=== PATIENT | male | born 1960 | race Caucasian/White ===

== ENCOUNTER 2017-12-20 13:14 | Emergency (ER) | payer SELFPAY ==
[~2017-12-20] VITALS: Ht 167.6 cm; Wt 79.7 kg
[~2017-12-20 13:14] MED LIST: CLEO300C2 PO; LORTA5 PO
[2017-12-20 13:17] VITALS: BP 138/85; PULSE 63; RESP 16; TEMP 97.5; O2SAT 98
[2017-12-20] MEDS ORDERED: ATEN1TAB73 PO (13:26)
[2017-12-20] MEDS ORDERED: METO25TA3 PO (13:26)
[2017-12-20] MEDS ORDERED: ZANT150T2 PO (13:26)
[2017-12-20] MEDS ORDERED: SODIUM CHLOR 0.9% 1000 ML INJ 1,000 ML IV SCH (13:34)
[2017-12-20 13:45] LABS: AUTOMATED NEUTROPHIL # 9.1 TH/MM3 (1.8-7.7); BASOPHIL % 0.2 % (0.0-2.0); EOSINOPHIL # 0.2 TH/MM3 (0-0.4); EOSINOPHIL % 1.7 % (0.0-4.0); HEMATOCRIT 36.8 % (39.0-51.0); LYMPH % 12.2 % (9.0-44.0); LYMPHOCYTE # 1.5 TH/MM3 (1.0-4.8); MEAN CELL VOLUME 76.3 FL (80.0-100.0); MEAN CORPUSCULAR HEMOGLOBIN 24.9 PG (27.0-34.0); MEAN CORPUSCULAR HGB CONC 32.6 % (32.0-36.0); MEAN PLATELET VOLUME 6.5 FL (7.0-11.0); MONO % 9.6 % (0.0-8.0); MONOCYTE # 1.2 TH/MM3 (0-0.9); NEUT % 76.3 % (16.0-70.0); PLATELET COUNT 289 TH/MM3 (150-450); RED BLOOD COUNT 4.83 MIL/MM3 (4.50-5.90); RED CELL DISTRIBUTION WIDTH 20.9 % (11.6-17.2)
[2017-12-20] MEDS ORDERED: MORPHINE SULFATE 4 MG/ML INJ IV PUSH ONE (13:45)
[2017-12-20] MEDS ORDERED: ONDANSETRON HCL 4 MG/2 ML VIAL IVP ONE (13:45)
[2017-12-20] MEDS ORDERED: LORazepam 2 MG/ML VIAL IV PUSH ONE (13:45)
[2017-12-20] MEDS ORDERED: FAMOTIDINE 20 MG/2 ML VIAL IV PUSH ONE (13:45)
[2017-12-20] MEDS ORDERED: SODIUM CHLORIDE 0.9% FLUSH 10 ML FLUSH IV FLUSH PRN (13:45)
--- NOTE | 2017-12-20 13:49 | PD ---
HPI Chief Complaint: GI Complaint Time Seen by Provider: 13:20 Travel History International Travel<30 days: No Contact w/Intl Traveler<30days: No Traveled to known affect area: No History of Present Illness HPI The patient is a 57-year-old male who presents to the emergency department for nausea and vomiting of one weeks duration. The patient states approximately a week ago he became nauseated, has vomiting approximately every hour. He denies any diarrhea, does complain of epigastric discomfort with vomiting that is relieved between episodes of vomiting. He does have a history of peptic ulcer disease with previous GI bleed causing anemia, however, denies previous blood transfusions. He does drink alcohol on a daily basis, approximately 10-12 beers per day, denies any history of pancreatitis. He does note a history of anxiety, thinks his anxiety is worsening his symptoms. He denies any fever, chills, or sweats. Symptoms are moderate. The patient's only previous abdominal surgery was for left inguinal hernia repair. He denies any known history of gallstones or biliary colic. He does not follow with a primary physician. PFSH Past Medical History Hx Anticoagulant Therapy: No Cardiovascular Problems: Yes (HTN) Diabetes: No Diminished Hearing: No GERD: Yes Hypertension: Yes Influenza Vaccination: No ?: Not Past Surgical History Abdominal Surgery: Yes (hernia repair) Social History Alcohol Use: Yes (2-3 beers every other day) Tobacco Use: No Substance Use: No Allergies-Medications (Allergen,Severity, Reaction): Coded Allergies: penicillin G (Unverified Allergy, Intermediate, Hives, 12/20/17) Reported Meds & Prescriptions Reported Meds & Active Scripts Active Reported Zantac (Ranitidine HCl) 150 Mg Tab 150 Mg PO DAILY Tenormin (Atenolol) 25 Mg Tab 25 Mg PO DAILY Metoprolol Tartrate 25 Mg Tab 25 Mg PO BID Review of Systems Except as stated in HPI: all other systems reviewed are Neg General / Constitutional: No: Fever Cardiovascular: No: Chest Pain or Discomfort Respiratory: No: Shortness of Breath Gastrointestinal: Positive: Nausea, Vomiting, Abdominal Pain (Epigastric pain with vomiting), No: Diarrhea Psychiatric: Positive: Anxiety, Substance Abuse (Alcohol abuse with 10-12 beers per day) Physical Exam Narrative GENERAL: Awake, alert, pleasant 57-year-old male appears his stated age and does appear slightly anxious. SKIN: Slightly diaphoretic across the forehead. HEAD: Atraumatic. Normocephalic. EYES: Pupils equal and round. No scleral icterus. No injection or drainage. ENT: No nasal bleeding or discharge. Mucous membranes pink and moist. NECK: Trachea midline. No JVD. CARDIOVASCULAR: Regular rate and rhythm. No murmur appreciated. RESPIRATORY: No accessory muscle use. Clear to auscultation. Breath sounds equal bilaterally. GASTROINTESTINAL: Abdomen soft, no epigastric tenderness, guarding, or rigidity. Rectal: No gross blood. Guaiac negative. MUSCULOSKELETAL: No obvious deformities. No clubbing. No cyanosis. No edema. NEUROLOGICAL: Awake and alert. No obvious cranial nerve deficits. Motor grossly within normal limits. Normal speech. PSYCHIATRIC: Slightly anxious. Insight and judgment appear normal. Data Data Last Documented VS Vital Signs Date Time Temp Pulse Resp B/P (MAP) Pulse Ox O2 Delivery O2 Flow Rate FiO2 12/20/17 14:09 18 12/20/17 13:53 62 128/81 (97) 100 Room Air 12/20/17 13:17 97.5 Orders Orders Complete Blood Count With Diff (12/20/17 13:34) Comprehensive Metabolic Panel (12/20/17 13:34) Lipase (12/20/17 13:34) Lactic Acid (12/20/17 13:34) Iv Access Insert/Monitor (12/20/17 13:34) Ecg Monitoring (12/20/17 13:34) Oximetry (12/20/17 13:34) Morphine Inj (Morphine Inj) (12/20/17 13:45) Ondansetron Inj (Zofran Inj) (12/20/17 13:45) Sodium Chlor 0.9% 1000 Ml Inj (Ns 1000 M (12/20/17 13:34) Sodium Chloride 0.9% Flush (Ns Flush) (12/20/17 13:45) Famotidine Inj (Pepcid Inj) (12/20/17 13:45) Lorazepam Inj (Ativan Inj) (12/20/17 13:45) Labs Laboratory Tests Test 12/20/17 13:35 12/20/17 13:45 White Blood Count 12.0 TH/MM3 Red Blood Count 4.83 MIL/MM3 Hemoglobin 12.0 GM/DL Hematocrit 36.8 % Mean Corpuscular Volume 76.3 FL Mean Corpuscular Hemoglobin 24.9 PG Mean Corpuscular Hemoglobin Concent 32.6 % Red Cell Distribution Width 20.9 % Platelet Count 289 TH/MM3 Mean Platelet Volume 6.5 FL Neutrophils (%) (Auto) 76.3 % Lymphocytes (%) (Auto) 12.2 % Monocytes (%) (Auto) 9.6 % Eosinophils (%) (Auto) 1.7 % Basophils (%) (Auto) 0.2 % Neutrophils # (Auto) 9.1 TH/MM3 Lymphocytes # (Auto) 1.5 TH/MM3 Monocytes # (Auto) 1.2 TH/MM3 Eosinophils # (Auto) 0.2 TH/MM3 Basophils # (Auto) 0.0 TH/MM3 CBC Comment AUTO DIFF Differential Comment AUTO DIFF CONFIRMED Blood Urea Nitrogen 10 MG/DL Creatinine 0.99 MG/DL Random Glucose 116 MG/DL Total Protein 8.6 GM/DL Albumin 3.6 GM/DL Calcium Level 8.6 MG/DL Alkaline Phosphatase 85 U/L Aspartate Amino Transf (AST/SGOT) 84 U/L Alanine Aminotransferase (ALT/SGPT) 103 U/L Total Bilirubin 0.4 MG/DL Sodium Level 132 MEQ/L Potassium Level 3.3 MEQ/L Chloride Level 94 MEQ/L Carbon Dioxide Level 23.2 MEQ/L Anion Gap 15 MEQ/L Estimat Glomerular Filtration Rate 78 ML/MIN Lipase 107 U/L Lactic Acid Level 2.1 mmol/L MDM Medical Decision Making Medical Screen Exam Complete: Yes Emergency Medical Condition: Yes Medical Record Reviewed: Yes Interpretation(s) Laboratory Tests Test 12/20/17 13:35 12/20/17 13:45 White Blood Count 12.0 TH/MM3 Red Blood Count 4.83 MIL/MM3 Hemoglobin 12.0 GM/DL Hematocrit 36.8 % Mean Corpuscular Volume 76.3 FL Mean Corpuscular Hemoglobin 24.9 PG Mean Corpuscular Hemoglobin Concent 32.6 % Red Cell Distribution Width 20.9 % Platelet Count 289 TH/MM3 Mean Platelet Volume 6.5 FL Neutrophils (%) (Auto) 76.3 % Lymphocytes (%) (Auto) 12.2 % Monocytes (%) (Auto) 9.6 % Eosinophils (%) (Auto) 1.7 % Basophils (%) (Auto) 0.2 % Neutrophils # (Auto) 9.1 TH/MM3 Lymphocytes # (Auto) 1.5 TH/MM3 Monocytes # (Auto) 1.2 TH/MM3 Eosinophils # (Auto) 0.2 TH/MM3 Basophils # (Auto) 0.0 TH/MM3 CBC Comment AUTO DIFF Differential Comment AUTO DIFF CONFIRMED Blood Urea Nitrogen 10 MG/DL Creatinine 0.99 MG/DL Random Glucose 116 MG/DL Total Protein 8.6 GM/DL Albumin 3.6 GM/DL Calcium Level 8.6 MG/DL Alkaline Phosphatase 85 U/L Aspartate Amino Transf (AST/SGOT) 84 U/L Alanine Aminotransferase (ALT/SGPT) 103 U/L Total Bilirubin 0.4 MG/DL Sodium Level 132 MEQ/L Potassium Level 3.3 MEQ/L Chloride Level 94 MEQ/L Carbon Dioxide Level 23.2 MEQ/L Anion Gap 15 MEQ/L Estimat Glomerular Filtration Rate 78 ML/MIN Lipase 107 U/L Lactic Acid Level 2.1 mmol/L Differential Diagnosis Differential diagnosis includes anxiety, somatization, gastritis, alcoholic gastritis, peptic ulcer disease, pancreatitis, biliary colic, cholecystitis, choledocholithiasis, GERD, electrolyte abnormality, dehydration. Narrative Course IV was established, labs were drawn and sent, and the patient was placed on cardiac telemetry monitoring and continuous pulse oximetry monitoring. The patient was administered Pepcid, morphine, Zofran, Ativan, and IV fluids. Lipase level was sent to lab. Lipase is unremarkable. Sodium level is normal. Potassium is minimally low at 3.3. Hemoglobin is greater than 12. The patient was reevaluated at 2:40 PM, symptoms have improved. The patient thinks that his recent change in work and anxiety is contributing to his symptoms. He is advised to decrease his alcohol intake, take Zantac twice a day, Zofran as needed for nausea and vomiting. HemaPrompt Point of Care Internal Pos. & Neg. Controls: Passed Fecal Specimen Occult Blood: Negative Diagnosis Primary Impression: Gastritis Qualified Codes: K29.20 - Alcoholic gastritis without bleeding Additional Impression: Anxiety Patient Instructions: General Instructions Additional Instructions: Medications as directed. Follow-up with your primary physician and/or gastroenterology. Decrease alcohol intake. Follow-up with your doctor in regards to your anxiety. Med/Other Pt SpecificInfo: Prescription(s) given Scripts Clonazepam (Klonopin) 1 Mg Tab 1 MG PO BID for 7 Days, #14 TAB 0 Refills Prov: Gabriel Dorman MD 12/20/17 Ranitidine (Zantac 150 Maximum Strength) 150 Mg Tab 150 MG PO BID for 30 Days, #60 TAB Prov: Gabriel Dorman MD 12/20/17 Disposition: 01 DISCHARGE HOME Condition: Stable Gabriel Dorman MD Dec 20, 2017 13:49
[2017-12-20 13:53] VITALS: BP 128/81; PULSE 62; RESP 18; O2SAT 100
[2017-12-20 13:57] LABS: CHLORIDE 94 MEQ/L (98-107); SODIUM (NA) 132 MEQ/L (136-145)
[2017-12-20 14:00] LABS: CALCIUM 8.6 MG/DL (8.5-10.1)
[2017-12-20 14:01] LABS: ALBUMIN 3.6 GM/DL (3.4-5.0); BICARBONATE 23.2 MEQ/L (21.0-32.0); BLOOD UREA NITROGEN 10 MG/DL (7-18); GLUCOSE,RANDOM 116 MG/DL (74-106)
[2017-12-20 14:04] LABS: ALT (GPT) 103 U/L (12-78); AST (GOT) 84 U/L (15-37); CREATININE 0.99 MG/DL (0.60-1.30); GLOMERULAR FILTRATION RATE 78 ML/MIN (>89)
[2017-12-20 14:06] LABS: TOTAL BILIRUBIN ADULT 0.4 MG/DL (0.2-1.0); TOTAL PROTEIN 8.6 GM/DL (6.4-8.2)
[2017-12-20 14:07] LABS: ALKALINE PHOSPHATASE 85 U/L (45-117)
[2017-12-20 14:09] VITALS: RESP 18
[2017-12-20] MEDS ORDERED: ZANTTAB PO (14:47)
[2017-12-20] MEDS ORDERED: CLON1 PO (14:47)
[2017-12-20 15:04] VITALS: BP 114/72
== END 2017-12-20 15:19 | disposition home or self-care (01) ==
LOC: PHED 13:14
DX: K29.20 Alcoholic gastritis without bleeding (principal); F41.9 Anxiety disorder, unspecified; I10 Essential (primary) hypertension; K21.9 Gastro-esophageal reflux disease without esophagitis
CPT/HCPCS: 80053; 83605; 83690; 85025; 96361; 96374; 96375; 99284; J2060; J2270; J2405; J7030

== ENCOUNTER 2018-02-08 08:29 | Inpatient (IN) | payer SELFPAY ==
[~2018-02-08] VITALS: Ht 167.6 cm; Wt 84.7 kg
[2018-02-08] VITALS (15 sets, daily range): BP systolic 105–166; BP diastolic 63–86; PULSE 98–125; RESP 12–33; TEMP 98.1–103; O2SAT 92–100
[~2018-02-08 08:29] MED LIST changes: +ATEN1TAB73 PO; -CLEO300C2 PO; +CLON1 PO; -LORTA5 PO; +METO25TA3 PO; +ZANT150T2 PO; +ZANTTAB PO
--- NOTE | 2018-02-08 08:43 | PD ---
HPI Chief Complaint: Shaking and shortness of breath Time Seen by Provider: 08:39 Travel History International Travel<30 days: No Contact w/Intl Traveler<30days: No Traveled to known affect area: No History of Present Illness HPI This 57-year-old male says he woke up this morning and was shaking and feeling short of breath. He has been coughing for the past 2 weeks. He is not aware of fever. He has no history of lung disease. He does not smoke. He has a history of hypertension but no history of heart disease he has been told he has an accelerated heart rate in the past. He has a history of anxiety and is on BuSpar and Xanax. The last Xanax was last night. He does drink a fair amount but says that he did drink last night. He is not having chest pain PFSH Past Medical History Hx Anticoagulant Therapy: No Cardiovascular Problems: Yes (HTN) Diabetes: No Diminished Hearing: No GERD: Yes Hypertension: Yes Past Surgical History Abdominal Surgery: Yes (hernia repair) Social History Alcohol Use: Yes (2-3 beers every other day) Tobacco Use: No Substance Use: No Allergies-Medications (Allergen,Severity, Reaction): Coded Allergies: penicillin G (Verified Allergy, Intermediate, Hives, 02/08/18) Reported Meds & Prescriptions Reported Meds & Active Scripts Active Reported Buspirone (Buspirone HCl) 10 Mg Tab 10 Mg PO BID Alprazolam 0.5 Mg Tab 0.5 Mg PO BID PRN Amlodipine (Amlodipine Besylate) 10 Mg Tab 10 Mg PO DAILY Tenormin (Atenolol) 25 Mg Tab 50 Mg PO BID Metoprolol Tartrate 25 Mg Tab 25 Mg PO BID Review of Systems Except as stated in HPI: all other systems reviewed are Neg General / Constitutional: No: Fever Eyes: No: Diploplia, Blurred Vision HENT: No: Headaches, Vertigo Cardiovascular: No: Chest Pain or Discomfort Respiratory: Positive: Cough, Shortness of Breath Gastrointestinal: No: Vomiting, Diarrhea Genitourinary: No: Urgency Physical Exam Narrative GENERAL: Well-developed male. He is in respiratory distress his heart rate is 120 SKIN: Focused skin assessment warm/dry. HEAD: Atraumatic. Normocephalic. EYES: Pupils equal and round. No scleral icterus. No injection or drainage. ENT: No nasal bleeding or discharge. Mucous membranes pink and moist. NECK: Trachea midline. No JVD. CARDIOVASCULAR: Regular rate and rhythm. No murmur appreciated. RESPIRATORY: There is accessory muscle use. There are rales at the left base GASTROINTESTINAL: Abdomen soft, non-tender, nondistended. Hepatic and splenic margins not palpable. MUSCULOSKELETAL: No obvious deformities. No clubbing. No cyanosis. No edema. NEUROLOGICAL: Awake and alert. No obvious cranial nerve deficits. Motor grossly within normal limits. Normal speech. PSYCHIATRIC: Appropriate mood and affect; insight and judgment normal. Data Data Last Documented VS Vital Signs Date Time Temp Pulse Resp B/P (MAP) Pulse Ox O2 Delivery O2 Flow Rate FiO2 02/08/18 11:50 99.3 113 24 137/65 (89) 96 Venturi Mask 6.00 50 Orders Orders Sepsis Workup Initiated (02/08/18 ) Complete Blood Count With Diff (02/08/18 08:39) Comprehensive Metabolic Panel (02/08/18 08:39) Prothrombin Time / Inr (Pt) (02/08/18 08:39) Act Partial Throm Time (Ptt) (02/08/18 08:39) Lactic Acid Sepsis Protocol (02/08/18 08:39) Magnesium (Mg) (02/08/18 08:39) Troponin I (02/08/18 08:39) Urinalysis - C+S If Indicated (02/08/18 08:39) Influenzae A/B Antigen (02/08/18 08:39) Blood Culture (02/08/18 08:39) Chest, Single Ap (02/08/18 08:39) Blood Glucose (02/08/18 08:39) Ecg Monitoring (02/08/18 08:39) Iv Access Insert/Monitor (02/08/18 08:39) Oximetry (02/08/18 08:39) Oxygen Administration (02/08/18 08:39) B-Type Natriuretic Peptide (02/08/18 08:55) Ct Pulmonary Angiogram (02/08/18 09:12) Sodium Chlor 0.9% 1000 Ml Inj (Ns 1000 M (02/08/18 09:15) Ceftriaxone Inj (Rocephin Inj) (02/08/18 09:45) Sodium Chlorid 0.9% 500 Ml Inj (Ns 500 M (02/08/18 10:30) Electrocardiogram (02/08/18 08:33) Sodium Chlor 0.9% 1000 Ml Inj (Ns 1000 M (02/08/18 10:45) Sodium Chlor 0.9% 1000 Ml Inj (Ns 1000 M (02/08/18 11:00) Acetaminophen (Tylenol) (02/08/18 11:15) Iohexol 350 Inj (Omnipaque 350 Inj) (02/08/18 11:15) Admit Order (Ed Use Only) (02/08/18 12:08) Labs Laboratory Tests Test 02/08/18 09:00 White Blood Count 20.7 TH/MM3 Red Blood Count 4.39 MIL/MM3 Hemoglobin 11.3 GM/DL Hematocrit 34.7 % Mean Corpuscular Volume 79.0 FL Mean Corpuscular Hemoglobin 25.7 PG Mean Corpuscular Hemoglobin Concent 32.5 % Red Cell Distribution Width 20.9 % Platelet Count 390 TH/MM3 Mean Platelet Volume 7.4 FL Neutrophils (%) (Auto) 83.3 % Lymphocytes (%) (Auto) 6.4 % Monocytes (%) (Auto) 5.3 % Eosinophils (%) (Auto) 1.7 % Basophils (%) (Auto) 3.3 % Neutrophils # (Auto) 17.2 TH/MM3 Lymphocytes # (Auto) 1.3 TH/MM3 Monocytes # (Auto) 1.1 TH/MM3 Eosinophils # (Auto) 0.4 TH/MM3 Basophils # (Auto) 0.7 TH/MM3 CBC Comment AUTO DIFF Differential Comment AUTO DIFF CONFIRMED Ovalocytes 1+ Rouleau PRESENT Prothrombin Time 9.8 SEC Prothromb Time International Ratio 1.0 RATIO Activated Partial Thromboplast Time 22.9 SEC Blood Urea Nitrogen 12 MG/DL Creatinine 0.77 MG/DL Random Glucose 116 MG/DL Total Protein 8.5 GM/DL Albumin 3.2 GM/DL Calcium Level 8.7 MG/DL Magnesium Level 1.6 MG/DL Alkaline Phosphatase 103 U/L Aspartate Amino Transf (AST/SGOT) 38 U/L Alanine Aminotransferase (ALT/SGPT) 28 U/L Total Bilirubin 0.2 MG/DL Sodium Level 132 MEQ/L Potassium Level 4.2 MEQ/L Chloride Level 98 MEQ/L Carbon Dioxide Level 19.6 MEQ/L Anion Gap 14 MEQ/L Estimat Glomerular Filtration Rate 105 ML/MIN Lactic Acid Level 4.1 mmol/L Troponin I LESS THAN 0.02 NG/ML B-Type Natriuretic Peptide 98 PG/ML MDM Medical Decision Making Medical Screen Exam Complete: Yes Emergency Medical Condition: Yes Medical Record Reviewed: Yes Differential Diagnosis Differential includes pneumonia, COPD, pulmonary embolism, CHF Narrative Course Patient was given supplemental oxygen. Chest x-ray is read as negative. White count is elevated at 20,000. He was given some Rocephin initially. A CT was a was obtained which shows a moderate left-sided infiltrate with right pleural effusion. His lactate is elevated at 4. He has been maintained on supplemental oxygen on a 50% Venti his status 94-96%. Diagnosis Primary Impression: Pneumonia Admitting Information Admitting Physician Requests: Admit Carlos Clement MD Feb 08, 2018 08:43
[2018-02-08] MEDS ORDERED: BUSP10TA PO (08:44)
[2018-02-08] MEDS ORDERED: ALPR0.5T3 PO (08:44)
[2018-02-08] MEDS ORDERED: AMLO10TA2 PO (08:44)
--- NOTE | 2018-02-08 09:06 | RADRPT ---
EXAM DATE/TIME: 02/08/2018 08:42 [facility] COMPARISON: No previous studies available for comparison. INDICATIONS : Cough x a couple weeks. Shaking & shortness of breath this morning. MEDICAL HISTORY : Hypertension. Gastroesophageal reflux disease. Tachycardia. SURGICAL HISTORY : Hernia repair. Right femur. ENCOUNTER: Initial ACUITY: 2 weeks PAIN SCORE: 0/10 LOCATION: chest FINDINGS: A single view of the chest demonstrates the lungs to be symmetrically aerated without evidence of mas s, infiltrate or effusion. The cardiomediastinal contours are unremarkable. Osseous structures are intact. Multiple healed rib and a left clavicular fracture CONCLUSION: Normal examination. Greg Brown MD on February 08, 2018 at 9:03 Board Certified Radiologist. This report was verified electronically.
[2018-02-08] MEDS ORDERED: SODIUM CHLOR 0.9% 1000 ML INJ 1,000 ML IV ONE ×3 (09:15→11:00)
[2018-02-08 09:18] LABS: AUTOMATED NEUTROPHIL # 17.2 TH/MM3 (1.8-7.7); BASOPHIL # 0.7 TH/MM3 (0-0.2); BASOPHIL % 3.3 % (0.0-2.0); EOSINOPHIL # 0.4 TH/MM3 (0-0.4); EOSINOPHIL % 1.7 % (0.0-4.0); HEMATOCRIT 34.7 % (39.0-51.0); HEMOGLOBIN 11.3 GM/DL (13.0-17.0); LYMPH % 6.4 % (9.0-44.0); LYMPHOCYTE # 1.3 TH/MM3 (1.0-4.8); MEAN CORPUSCULAR HEMOGLOBIN 25.7 PG (27.0-34.0); MEAN CORPUSCULAR HGB CONC 32.5 % (32.0-36.0); MEAN PLATELET VOLUME 7.4 FL (7.0-11.0); MONO % 5.3 % (0.0-8.0); MONOCYTE # 1.1 TH/MM3 (0-0.9); NEUT % 83.3 % (16.0-70.0); PLATELET COUNT 390 TH/MM3 (150-450); RED BLOOD COUNT 4.39 MIL/MM3 (4.50-5.90); RED CELL DISTRIBUTION WIDTH 20.9 % (11.6-17.2); WHITE BLOOD COUNT 20.7 TH/MM3 (4.0-11.0)
[2018-02-08 09:42] LABS: PROTHROMBIN TIME - PATIENT 9.8 SEC (9.8-11.6)
[2018-02-08] MEDS ORDERED: cefTRIAXone INJ 2,000 MG in SODIUM CHLORIDE 0.9% INJ 100 ML IV ONE (09:45)
[2018-02-08 09:53] LABS: OVALOCYTES 1+ (NORMAL); ROULEAUX PRESENT (NORMAL)
[2018-02-08 10:13] LABS: LACTIC ACID SEPSIS PROTOCOL 4.1 mmol/L (0.4-2.0)
[2018-02-08] MEDS ORDERED: SODIUM CHLORID 0.9% 500 ML INJ 500 ML IV ONE (10:30)
[2018-02-08 10:43] LABS: CHLORIDE 98 MEQ/L (98-107); SODIUM (NA) 132 MEQ/L (136-145)
[2018-02-08 10:46] LABS: CALCIUM 8.7 MG/DL (8.5-10.1)
[2018-02-08 10:47] LABS: ALBUMIN 3.2 GM/DL (3.4-5.0); BICARBONATE 19.6 MEQ/L (21.0-32.0); BLOOD UREA NITROGEN 12 MG/DL (7-18); GLUCOSE,RANDOM 116 MG/DL (74-106); MAGNESIUM 1.6 MG/DL (1.5-2.5)
[2018-02-08 10:50] LABS: ALT (GPT) 28 U/L (12-78); AST (GOT) 38 U/L (15-37); CREATININE 0.77 MG/DL (0.60-1.30); GLOMERULAR FILTRATION RATE 105 ML/MIN (>89)
[2018-02-08 10:52] LABS: TOTAL BILIRUBIN ADULT 0.2 MG/DL (0.2-1.0); TOTAL PROTEIN 8.5 GM/DL (6.4-8.2)
[2018-02-08 10:53] LABS: ALKALINE PHOSPHATASE 103 U/L (45-117)
[2018-02-08 10:55] LABS: TROPONIN I LESS THAN 0.02 NG/ML (0.02-0.05)
[2018-02-08] MEDS ORDERED: ACETAMINOPHEN 500 MG CPLT PO ONE (11:15)
[2018-02-08] MEDS ORDERED: IOHEXOL 350 MG/ML 10 ML VIAL (for RAD DIAG) IVCONTRAST ONE (11:15)
--- NOTE | 2018-02-08 11:23 | RADRPT ---
EXAM DATE/TIME: 02/08/2018 11:05 [facility] COMPARISON: No previous studies available for comparison. INDICATIONS : Short of breath today. Cough x 2 weeks. IV CONTRAST: 75 cc Omnipaque 350 (iohexol) IV RADIATION DOSE: 19.55 CTDIvol (mGy) MEDICAL HISTORY : Hypertension. Gastroesophageal reflux disease. SURGICAL HISTORY : Hernia repair. ENCOUNTER: Initial ACUITY: 2 weeks PAIN SCALE: 0/10 LOCATION: chest TECHNIQUE: Volumetric scanning of the chest was performed using a pulmonary embolism protocol MIP images were re constructed. Using automated exposure control and adjustment of the mA and/or kV according to patien t size, radiation dose was kept as low as reasonably achievable to obtain optimal diagnostic quality images. DICOM format image data is available electronically for review and comparison. Follow-up recommendations for detected pulmonary nodules are based at a minimum on nodule size and pa tient risk factors according to Fleischner Society Guidelines. FINDINGS: PULMONARY ARTERIES: No filling defects are seen in the pulmonary arteries through the segmental level. LUNGS: There is extensive consolidation in the left lower lobe. There is a small amount consolidation left u pper lobe.. PLEURAE: Small right-sided pleural effusion. MEDIASTINUM: There is good visualization of the great vessels of the middle mediastinum. No evidence of mediastin al or hilar adenopathy/mass. The heart is slightly enlarged MUSCULOSKELETAL: Within normal limits for patient age. MISCELLANEOUS: The visualized upper abdominal organs demonstrate no acute abnormality. CONCLUSION: Moderate sized infiltrate left lung base. Moderate right pleural effusion. No evidence of pulmonary e mbolism.. Greg Brown MD on February 08, 2018 at 11:19 Board Certified Radiologist. This report was verified electronically.
[2018-02-08] MEDS ORDERED: AZITHROMYCIN INJ 500 MG in SODIUM CHLOR 0.9% 250 ML INJ 250 ML IV SCH (12:15)
--- NOTE | 2018-02-08 12:18 | EKG ---
Date Performed: 02/08/2018 Time Performed: 08:33:56 PTAGE: 57 years EKG: SINUS TACHYCARDIA NONSPECIFIC ST & T-WAVE ABNORMALITY ABNORMAL RHYTHM ECG INTERPRETATION BA SED ON A DEFAULT AGE OF 40 YEARS NO PREVIOUS TRACING DOCTOR: Greg Carney Interpretating Date/Time 02/08/2018 12:18:17
[2018-02-08] MEDS ORDERED: Vancomycin Consult Pharmacy 1 EA OTHER SCH (12:45)
[2018-02-08] MEDS ORDERED: VANCOMYCIN 1 GM/200 ML PREMIX IV ONE (13:00)
--- NOTE | 2018-02-08 13:10 | HHI.HP ---
HPI Service [facility] Primary Care Physician Jhony Herzog, DO Admission Diagnosis PNEUMONIA Diagnoses: Chief Complaint: Shortness of breath Travel History International Travel<30 Days: No Contact w/Intl Traveler <30 Da: No Traveled to Known Affected Are: No History of Present Illness 57-year-old white male being admitted for acute hypoxic respiratory failure. Patient was in his usual state of health until earlier this morning when he woke up very short of breath, diaphoretic, cold, and clammy. Denies having any nausea vomiting or diarrhea. says that he has been coughing for about a week, patient admits that his cough is productive but denies any blood. Reports only rib pain associated with coughing. Patient reports being compliant with all of his medication doses except for this morning. In the emergency department CT angiogram was performed which was negative for pulmonary embolism, but on my independent review there was very obvious left- sided diffuse lung infiltrate. Patient was given Rocephin in the ER along with normal saline boluses. Blood cultures were drawn. Influenza screen was negative. Lactate was elevated at 4.0, white count was noted to be 20,000., Tachycardic in the 120s was noted to be saturating at 92% on 4 L.. Past Family Social History Past Medical History Bleeding colonic polyps, bleeding ulcer, anxiety, hypertension Allergies: Coded Allergies: penicillin G (Verified Allergy, Intermediate, Hives, 02/08/18) Family History Biological father had diabetes Social History Denies smoking, drinks more than a 6 pack per day for years per Physical Exam Vital Signs Vital Signs Date Time Temp Pulse Resp B/P (MAP) Pulse Ox O2 Delivery O2 Flow Rate FiO2 02/08/18 12:44 101 20 129/69 (89) 96 Venturi Mask 6.00 50 02/08/18 11:50 99.3 113 24 137/65 (89) 96 Venturi Mask 6.00 50 02/08/18 11:05 94 Venturi Mask 6.00 02/08/18 11:03 103.0 125 24 120/70 (87) 94 Venturi Mask 6.00 50 02/08/18 09:55 93 Venturi Mask 6.00 50 02/08/18 09:50 124 32 145/68 (93) 92 Venturi Mask 50 02/08/18 09:30 92 Venturi Mask 50 02/08/18 08:30 98.5 124 32 166/86 (112) 92 Nasal Cannula 4.00 02/08/18 08:30 124 32 92 Nasal Cannula 4.00 02/08/18 08:30 98.5 124 32 166/86 (112) 92 02/08/18 08:30 92 Nasal Cannula 4.00 02/08/18 08:30 92 Nasal Cannula 4.00 Physical Exam VS: afebrile GENERAL: Lying in bed, mild respiratory distress, diaphoretic SKIN: Warm and dry. EYES: No scleral icterus. No injection or drainage. ENT: No nasal bleeding or discharge. Mucous membranes pink and moist. CARDIOVASCULAR: Tachycardic rate, regular rhythm, no murmurs RESPIRATORY: Diminished breath sounds in the bases bilaterally, on nonrebreather currently GASTROINTESTINAL: Abdomen soft, non-tender, nondistended. Extremities: No clubbing, cyanosis, or edema. No obvious deformities. MUSCULOSKELETAL: th in upper and lower extremities proximally; adequate muscle bulk and tone for age and habitus NEUROLOGICAL: Awake and alert. No obvious cranial nerve deficits. No facial droop nor slurred speech noted. PSYCHIATRIC: Appropriate mood and affect; insight and judgment normal. Laboratory Laboratory Tests Test 02/08/18 09:00 White Blood Count 20.7 Red Blood Count 4.39 Hemoglobin 11.3 Hematocrit 34.7 Mean Corpuscular Volume 79.0 Mean Corpuscular Hemoglobin 25.7 Mean Corpuscular Hemoglobin Concent 32.5 Red Cell Distribution Width 20.9 Platelet Count 390 Mean Platelet Volume 7.4 Neutrophils (%) (Auto) 83.3 Lymphocytes (%) (Auto) 6.4 Monocytes (%) (Auto) 5.3 Eosinophils (%) (Auto) 1.7 Basophils (%) (Auto) 3.3 Neutrophils # (Auto) 17.2 Lymphocytes # (Auto) 1.3 Monocytes # (Auto) 1.1 Eosinophils # (Auto) 0.4 Basophils # (Auto) 0.7 CBC Comment AUTO DIFF Differential Comment AUTO DIFF CONFIRMED Ovalocytes 1+ Rouleau PRESENT Prothrombin Time 9.8 Prothromb Time International Ratio 1.0 Activated Partial Thromboplast Time 22.9 Blood Urea Nitrogen 12 Creatinine 0.77 Random Glucose 116 Total Protein 8.5 Albumin 3.2 Calcium Level 8.7 Magnesium Level 1.6 Alkaline Phosphatase 103 Aspartate Amino Transf (AST/SGOT) 38 Alanine Aminotransferase (ALT/SGPT) 28 Total Bilirubin 0.2 Sodium Level 132 Potassium Level 4.2 Chloride Level 98 Carbon Dioxide Level 19.6 Anion Gap 14 Estimat Glomerular Filtration Rate 105 Lactic Acid Level 4.1 Troponin I LESS THAN 0.02 B-Type Natriuretic Peptide 98 Date/Time Source Procedure Growth Status 02/08/18 09:05 Blood Peripheral Aerobic Blood Culture Pending Received 02/08/18 09:05 Blood Peripheral Anaerobic Blood Culture Pending Received 02/08/18 09:10 Nasal Aspirate Influenza Types A,B Antigen (RACHEL) - Final NEGATIVE FOR FLU A AND B ANTIGEN.... Complete Result Diagram: 02/08/1889902/08/[address] Angiography 02/08/18911 Signed Impressions: Service Date/Time: Thursday, February 08, 2018 11:05 - CONCLUSION: Moderate sized infiltrate left lung base. Moderate right pleural effusion. No evidence of pulmonary embolism.. Greg Brown MD Chest X-Ray 02/08/18838 Signed Impressions: Service Date/Time: Thursday, February 08, 2018 08:42 - CONCLUSION: Normal examination. MD Shivam Crabtree VTE Risk Assessment Captanyai VTE Risk Assessment: Mod/High Risk (score >= 2) Caprini Risk Assessment Model Point Value = 1 Point Value = 2 Point Value = 3 Point Value = 5 Age 41-60 Minor surgery BMI > 25 kg/m2 Swollen legs Varicose veins or History of unexplained or recurrent spontaneous Oral contraceptives or hormone replacement Sepsis (< 1 month) Serious lung disease, including pneumonia (< 1 month) Abnormal pulmonary function Acute myocardial infarction Congestive heart failure (< 1 month) History of inflammatory bowel disease Medical patient at bed rest Age 61-74 Arthroscopic surgery Major open surgery (> 45 min) Laparoscopic surgery (> 45 min) Malignancy Confined to bed (> 72 hours) Immobilizing plaster cast Central venous access Age >= 75 History of VTE Family history of VTE Factor V Leiden Prothrombin [id number] Lupus anticoagulant Anticardiolipin antibodies Elevated serum homocysteine Heparin-induced thrombocytopenia Other congenital or acquired thrombophilia Stroke (< 1 month) Elective arthroplasty Hip, pelvis, or leg fracture Acute spinal cord injury (< 1 month) Prophylaxis Regimen Total Risk Factor Score Risk Level Prophylaxis Regimen 0-1 Low Early ambulation 2 Moderate Order ONE of the following: *Sequential Compression Device (SCD) *Heparin 5000 units SQ BID 3-4 Higher Order ONE of the following medications: *Heparin 5000 units SQ TID *Enoxaparin/Lovenox 40 mg SQ daily (WT < 150 kg, CrCl > 30 mL/min) *Enoxaparin/Lovenox 30 mg SQ daily (WT < 150 kg, CrCl > 10-29 mL/min) *Enoxaparin/Lovenox 30 mg SQ BID (WT < 150 kg, CrCl > 30 mL/min) AND/OR *Sequential Compression Device (SCD) 5 or more Highest Order ONE of the following medications: *Heparin 5000 units SQ TID (Preferred with Epidurals) *Enoxaparin/Lovenox 40 mg SQ daily (WT < 150 kg, CrCl > 30 mL/min) *Enoxaparin/Lovenox 30 mg SQ daily (WT < 150 kg, CrCl > 10-29 mL/min) *Enoxaparin/Lovenox 30 mg SQ BID (WT < 150 kg, CrCl > 30 mL/min) AND *Sequential Compression Device (SCD) Assessment and Plan Problem List: (1) Pneumonia ICD Code: J18.9 - Pneumonia, unspecified organism Status: Acute Assessment and Plan 57-year-old white male being admitted for acute hypoxic respiratory failure Acute hypoxic respiratory failure -Likely secondary to pneumonia -O2 supplementation as needed titrate to keep sats at 90% or higher -CT angiogram is negative for pulmonary embolism, infiltrate is obvious -Influenza screen is negative, BNP is within normal limits -consider ABG if unable to tolerate sats at 4 L NC Sepsis -Secondary to pneumonia likely, blood cultures pending -Given normal saline boluses, starting aggressive IV fluid infusion -Antibiotics as below Pneumonia -Due to the severity of the infiltrates, I will start the patient on vancomycin and Levaquin Anxiety -Resume home medications Hypertension -We will resume home metoprolol, not sure why patient is also taking atenolol at home but I will not start this inpatient Lovenox, admit to ICU w/ telemetry Physician Certification 2 Midnight Certification Type: Admission for Inpatient Services Order for Inpatient Services The services are ordered in accordance with Medicare regulations or non- Medicare payer requirements, as applicable. In the case of services not specified as inpatient-only, they are appropriately provided as inpatient services in accordance with the 2-midnight benchmark. Estimated LOS (days): 3 3 days is the estimated time the patient will need to remain in the hospital, assuming treatment plan goals are met and no additional complications. Post-Hospital Plan: Home Problem Qualifiers (1) Pneumonia: Slim Murcia MD Feb 08, 2018 13:10
[2018-02-08] MEDS ORDERED: RESP: ACETYLCYSTEINE 10% 30 ML NEB NEB PRN (13:30)
[2018-02-08] MEDS: RESP: ALBUTEROL 2.5 MG/IPRATROPIUM 0.5 MG NEB (SCH) NEB ×2 (13:58→19:38)
[2018-02-08] MEDS: SODIUM CHLOR 0.9% 1000 ML INJ 1,000 ML IV SCH ×2 (14:30→21:22)
[2018-02-08] MEDS ORDERED: CHLORHEXIDINE GLUCONATE 2 % 1 PACK (2 CLOTHS)(extra cloths) TOPICAL PRN (15:00)
[2018-02-08] MEDS: guaiFENesin/CODEINE SYRUP 200 MG/20 MG/10 ML CUP PO PRN ×2 (16:29→21:25)
[2018-02-08] MEDS: LEVOFLOXACIN 750 MG PREMIX INJ 150 ML IV SCH (16:30)
[2018-02-08 16:49] LABS: BILIRUBIN, URINE NEG (NEG); BLOOD, URINE NEG (NEG); GLUCOSE,URINE NEG (NEG); KETONE, URINE NEG (NEG); NITRITE,URINE NEG (NEG); PH, URINE 5.5 (5.0-8.5); URINE COLOR YELLOW (YELLW/STRAW); URINE LEUKOCYTE ESTERASE NEG (NEG)
[2018-02-08 17:18] LABS: RBC, URINE 0-3 /hpf (0-3); SQUAMOUS EPITHELIAL CELL URINE 0-5 /hpf (0-5)
[2018-02-08] MEDS ORDERED: RESP: ALBUTEROL 2.5 MG/IPRATROPIUM 0.5 MG NEB (PRN) NEB (18:00)
[2018-02-08] MEDS: METOPROLOL TARTRATE 25 MG TAB PO SCH (21:22)
[2018-02-08] MEDS: busPIRone HCL 10 MG TAB PO SCH (21:22)
[2018-02-08] MEDS: VANCOMYCIN INJ 1,500 MG in SODIUM CHLORID 0.9% 500 ML INJ 500 ML IV SCH (21:22)
[2018-02-08] MEDS: guaiFENesin E.R. 600 MG TAB PO SCH (21:22)
[2018-02-09] VITALS (45 sets, daily range): BP systolic 96–154; BP diastolic 53–85; PULSE 78–124; RESP 13–42; TEMP 98.1–99.1; O2SAT 84–99
[2018-02-09] MEDS: CHLORHEXIDINE GLUCONATE 2 % 1 PACK (2 CLOTHS)(taper/protocol) TOPICAL SCH (02:53)
[2018-02-09 04:36] LABS: AUTOMATED NEUTROPHIL # 10.6 TH/MM3 (1.8-7.7); BASOPHIL # 0.1 TH/MM3 (0-0.2); BASOPHIL % 0.8 % (0.0-2.0); EOSINOPHIL # 0.2 TH/MM3 (0-0.4); EOSINOPHIL % 1.6 % (0.0-4.0); HEMATOCRIT 28.4 % (39.0-51.0); LYMPHOCYTE # 1.3 TH/MM3 (1.0-4.8); MEAN CELL VOLUME 78.9 FL (80.0-100.0); MEAN CORPUSCULAR HGB CONC 31.6 % (32.0-36.0); MEAN PLATELET VOLUME 6.4 FL (7.0-11.0); MONO % 6.9 % (0.0-8.0); MONOCYTE # 0.9 TH/MM3 (0-0.9); NEUT % 80.7 % (16.0-70.0); PLATELET COUNT 305 TH/MM3 (150-450); RED CELL DISTRIBUTION WIDTH 20.5 % (11.6-17.2); WHITE BLOOD COUNT 13.1 TH/MM3 (4.0-11.0)
[2018-02-09 04:55] LABS: OVALOCYTES 1+ (NORMAL)
[2018-02-09 04:57] LABS: BICARBONATE 27.1 MEQ/L (21.0-32.0); CALCIUM 7.5 MG/DL (8.5-10.1); CREATININE 0.62 MG/DL (0.60-1.30)
[2018-02-09] MEDS: RESP: ALBUTEROL 2.5 MG/IPRATROPIUM 0.5 MG NEB (SCH) NEB ×3 (08:09→19:35)
[2018-02-09] MEDS: guaiFENesin E.R. 600 MG TAB PO SCH ×2 (09:50→20:54)
[2018-02-09] MEDS: busPIRone HCL 10 MG TAB PO SCH ×2 (09:50→20:54)
[2018-02-09] MEDS: METOPROLOL TARTRATE 25 MG TAB PO SCH ×2 (09:50→20:54)
[2018-02-09] MEDS: VANCOMYCIN INJ 1,500 MG in SODIUM CHLORID 0.9% 500 ML INJ 500 ML IV SCH ×2 (09:51→17:00)
--- NOTE | 2018-02-09 12:13 | HHI.PR ---
Subjective Remarks Nursing denies any deterioration since last night except for some mild worsening hypoxia the patient laid down where she needed 6 L of nasal cannula. Otherwise patient says his shortness of breath has resolved, feels better than yesterday, denies any nausea vomiting. Objective Vital Signs Date Time Temp Pulse Resp B/P (MAP) Pulse Ox O2 Delivery O2 Flow Rate FiO2 02/09/18 08:20 94 Nasal Cannula 6.00 02/09/18 08:10 96 Venturi Mask 50 02/09/18 06:30 86 18 95 02/09/18 06:15 86 28 93 02/09/18 06:00 86 21 106/54 (71) 95 02/09/18 06:00 94 02/09/18 05:45 88 19 98 02/09/18 05:30 90 35 88 02/09/18 05:15 90 36 90 02/09/18 05:00 86 29 92 02/09/18 04:45 88 31 93 02/09/18 04:30 94 25 97 02/09/18 04:15 88 34 96 02/09/18 04:00 98.8 88 34 105/63 (77) 97 02/09/18 03:45 88 37 97 02/09/18 03:30 90 41 97 02/09/18 03:15 90 30 97 02/09/18 03:00 94 23 97 02/09/18 02:45 94 22 95 02/09/18 02:30 94 28 96 02/09/18 02:15 92 28 88 02/09/18 02:00 94 02/09/18 02:00 94 33 103/62 (76) 93 02/09/18 01:45 94 26 94 02/09/18 01:30 94 34 94 02/09/18 01:15 96 35 97 02/09/18 01:00 96 39 84 02/09/18 00:45 98 20 94 02/09/18 00:30 94 22 93 02/09/18 00:15 96 22 88 02/09/18 00:00 98.1 96 23 124/72 (89) 96 02/09/18 00:00 96 02/08/18 20:00 98.1 110 22 124/76 (92) 95 02/08/18 20:00 110 02/08/18 19:35 100 Nasal Cannula 4.00 02/08/18 18:00 106 02/08/18 17:00 108 02/08/18 16:35 99.0 104 33 120/73 (89) 98 02/08/18 16:00 98 02/08/18 15:00 102 02/08/18 14:08 100.3 103 12 105/63 (77) 95 02/08/18 14:00 94 Nasal Cannula 4.00 02/08/18 14:00 100 02/08/18 13:05 02/08/18 12:44 101 20 129/69 (89) 96 Venturi Mask 6.00 50 I/O 02/08/18 02/08/18 02/08/18 02/09/18 02/09/18 02/09/18 07:00 15:00 23:00 07:00 15:00 23:00 Intake Total 2100 ml 1180 ml 700 ml Output Total 1200 ml 1500 ml Balance 2100 ml -20 ml -800 ml Intake Oral 980 ml 700 ml IV Total 2100 ml 200 ml Output Urine Total 1200 ml 1500 ml # Bowel Movements 0 0 Result Diagram: 02/09/182 02/09/182 Objective Remarks Clear lungs bilaterally, unlabored breathing, on nasal cannula A/P Assessment and Plan 57-year-old white male being admitted for acute hypoxic respiratory failure Acute hypoxic respiratory failure -Likely secondary to pneumonia -O2 supplementation as needed titrate to keep sats at 90% or higher -CT angiogram is negative for pulmonary embolism, infiltrate is obvious -Influenza screen is negative, BNP is within normal limits -consider ABG if unable to maintain sats on NC, weaning as tolerated Sepsis -Clinically improved as the patient is now afebrile, secondary to pneumonia likely, blood cultures pending -Given normal saline boluses, starting aggressive IV fluid infusion -Antibiotics as below Pneumonia -Due to the severity of the infiltrates, continue vancomycin and Levaquin Anxiety - home medications Hypertension -home metoprolol, not sure why patient is also taking atenolol at home but I will not start this inpatient Lovenox, admit to ICU w/ telemetry Slim Murcai MD Feb 09, 2018 12:13
[2018-02-09] MEDS: LEVOFLOXACIN 750 MG PREMIX INJ 150 ML IV SCH (13:00)
[2018-02-09] MEDS: guaiFENesin/CODEINE SYRUP 200 MG/20 MG/10 ML CUP PO PRN ×2 (15:02→20:56)
[2018-02-09] MEDS: ALPRAZolam 0.5 MG TAB PO PRN (17:14)
[2018-02-09] MEDS: SODIUM CHLOR 0.9% 1000 ML INJ 1,000 ML IV SCH (20:54)
[2018-02-10] VITALS (18 sets, daily range): BP systolic 110–138; BP diastolic 54–90; PULSE 90–114; RESP 15–37; TEMP 98–99.4; O2SAT 89–98
[2018-02-10] MEDS: CHLORHEXIDINE GLUCONATE 2 % 1 PACK (2 CLOTHS)(taper/protocol) TOPICAL SCH (04:00)
[2018-02-10] MEDS: SODIUM CHLOR 0.9% 1000 ML INJ 1,000 ML IV SCH ×2 (04:09→14:09)
[2018-02-10] MEDS: VANCOMYCIN INJ 1,500 MG in SODIUM CHLORID 0.9% 500 ML INJ 500 ML IV SCH (04:31)
[2018-02-10] MEDS: RESP: ALBUTEROL 2.5 MG/IPRATROPIUM 0.5 MG NEB (SCH) NEB ×2 (07:30→14:39)
[2018-02-10] MEDS: guaiFENesin E.R. 600 MG TAB PO SCH (09:19)
[2018-02-10] MEDS: METOPROLOL TARTRATE 25 MG TAB PO SCH (09:19)
[2018-02-10] MEDS: busPIRone HCL 10 MG TAB PO SCH (09:19)
[2018-02-10] MEDS: guaiFENesin/CODEINE SYRUP 200 MG/20 MG/10 ML CUP PO PRN (09:23)
--- NOTE | 2018-02-10 12:44 | HHI.DS ---
Discharge Summary Admission Date Feb 08, 2018 at 12:09 Discharge Date: Feb 10, 2018 Admitting Diagnosis PNEUMONIA (1) Pneumonia ICD Code: J18.9 - Pneumonia, unspecified organism Status: Acute Procedures none Brief History - From Admission 57-year-old white male being admitted for acute hypoxic respiratory failure. Patient was in his usual state of health until earlier this morning when he woke up very short of breath, diaphoretic, cold, and clammy. Denies having any nausea vomiting or diarrhea. says that he has been coughing for about a week, patient admits that his cough is productive but denies any blood. Reports only rib pain associated with coughing. Patient reports being compliant with all of his medication doses except for this morning. In the emergency department CT angiogram was performed which was negative for pulmonary embolism, but on my independent review there was very obvious left- sided diffuse lung infiltrate. Patient was given Rocephin in the ER along with normal saline boluses. Blood cultures were drawn. Influenza screen was negative. Lactate was elevated at 4.0, white count was noted to be 20,000., Tachycardic in the 120s was noted to be saturating at 92% on 4 L.. CBC/BMP: 02/09/18 0422 02/09/18 0422 Significant Findings Laboratory Tests Test 02/08/18 09:00 02/08/18 14:30 02/08/18 15:00 02/08/18 18:46 White Blood Count 20.7 TH/MM3 (4.0-11.0) Red Blood Count 4.39 MIL/MM3 (4.50-5.90) Hemoglobin 11.3 GM/DL (13.0-17.0) Hematocrit 34.7 % (39.0-51.0) Mean Corpuscular Volume 79.0 FL (80.0-100.0) Mean Corpuscular Hemoglobin 25.7 PG (27.0-34.0) Red Cell Distribution Width 20.9 % (11.6-17.2) Neutrophils (%) (Auto) 83.3 % (16.0-70.0) Lymphocytes (%) (Auto) 6.4 % (9.0-44.0) Basophils (%) (Auto) 3.3 % (0.0-2.0) Neutrophils # (Auto) 17.2 TH/MM3 (1.8-7.7) Monocytes # (Auto) 1.1 TH/MM3 (0-0.9) Basophils # (Auto) 0.7 TH/MM3 (0-0.2) Ovalocytes 1+ (NORMAL) Rouleau PRESENT (NORMAL) Activated Partial Thromboplast Time 22.9 SEC (24.3-30.1) Random Glucose 116 MG/DL (74-106) Total Protein 8.5 GM/DL (6.4-8.2) Albumin 3.2 GM/DL (3.4-5.0) Aspartate Amino Transf (AST/SGOT) 38 U/L (15-37) Sodium Level 132 MEQ/L (136-145) Carbon Dioxide Level 19.6 MEQ/L (21.0-32.0) Lactic Acid Level 4.1 mmol/L (0.4-2.0) 2.6 mmol/L (0.4-2.0) Troponin I LESS THAN 0.02 NG/ML Test 02/09/18 04:22 White Blood Count 13.1 TH/MM3 (4.0-11.0) Red Blood Count 3.60 MIL/MM3 (4.50-5.90) Hemoglobin 9.0 GM/DL (13.0-17.0) Hematocrit 28.4 % (39.0-51.0) Mean Corpuscular Volume 78.9 FL (80.0-100.0) Mean Corpuscular Hemoglobin 25.0 PG (27.0-34.0) Mean Corpuscular Hemoglobin Concent 31.6 % (32.0-36.0) Red Cell Distribution Width 20.5 % (11.6-17.2) Mean Platelet Volume 6.4 FL (7.0-11.0) Neutrophils (%) (Auto) 80.7 % (16.0-70.0) Neutrophils # (Auto) 10.6 TH/MM3 (1.8-7.7) Ovalocytes 1+ (NORMAL) Blood Urea Nitrogen 4 MG/DL (7-18) Calcium Level 7.5 MG/DL (8.5-10.1) Potassium Level 3.4 MEQ/L (3.5-5.1) PE at Discharge Clear lungs bilaterally, unlabored breathing, no cyanosis Hospital Course Patient was admitted, started on IV antibiotics. His hypoxia improved and was eventually concluded to be positional and likely secondary to obstructive sleep apnea; he was saturating well on room air whenever he sat was standing. He was noted to have desaturations while sleeping and thus concluded to have clinical obstructive sleep apnea. Patient and were extensively counseled on the importance of following up outpatient to arrange for a sleep study so he can get the qualifying treatment needed. Significant other requested that we attempt to provide nocturnal oxygen. Contact information for [facility] was provided. Patient remained afebrile was tolerating p.o. intake in the last 48 hours. Patient has met maximal benefit from hospitalization and is clinically stable for discharge. Pt Condition on Discharge: Stable Discharge Disposition: Discharge Home Discharge Time: > 30 minutes Discharge Instructions DIET: Follow Instructions for: As Tolerated, No Restrictions Activities you can perform: Regular-No Restrictions Follow up Referrals: PCP Follow-up - 1 Week New Medications: Levofloxacin (Levofloxacin) 750 Mg Tablet 750 MG PO DAILY for Infection, #8 TAB 0 Refills Continued Medications: Alprazolam (Alprazolam) 0.5 Mg Tab 0.5 MG PO BID PRN for ANXIETY, TAB 0 Refills Amlodipine (Amlodipine) 10 Mg Tab 10 MG PO DAILY for Blood Pressure Management, #30 TAB 0 Refills Buspirone (Buspirone) 10 Mg Tab 10 MG PO BID for Anxiety, TAB 0 Refills Metoprolol Tartrate (Metoprolol Tartrate) 25 Mg Tab 25 MG PO BID, #60 TAB 0 Refills Discontinued Medications: Atenolol (Tenormin) 25 Mg Tab 50 MG PO BID for Blood Pressure Management, #30 TAB 0 Refills Slim Murcia MD Feb 10, 2018 12:44
[2018-02-10] MEDS ORDERED: LEVO750T3 PO (12:45)
[2018-02-10] MEDS: LEVOFLOXACIN 750 MG PREMIX INJ 150 ML IV SCH (14:03)
[2018-02-10] MEDS: ALPRAZolam 0.5 MG TAB PO PRN (15:05)
--- NOTE | 2018-02-10 15:23 | HHI.DCPOC ---
Discharge Care Plan Diagnosis: (1) Obstructive sleep apnea (2) Pneumonia Goals to Promote Your Health * To prevent worsening of your condition and complications * To maintain your health at the optimal level Directions to Meet Your Goals Take your medications as prescribed Follow your dietary instruction Follow activity as directed Keep your appointments as scheduled Take your immunizations and boosters as scheduled If your symptoms worsen call your PCP, if no PCP go to Urgent Care Center or Emergency Room Smoking is Dangerous to Your Health. Avoid second hand smoke Call the 24-hour hour crisis hotline for domestic abuse at Slim Murcia MD Feb 10, 2018 15:23
[2018-02-10] MEDS ORDERED: OXYGENTANK NAS.CANULA (15:48)
[2018-02-11] MEDS ORDERED: PHARMACY ORDERED LAB ONE (04:45)
== END 2018-02-10 16:41 | disposition home or self-care (01) | DRG 871 ==
LOC: PHED 08:29 → PHEDA 12:09 → PHICU 13:10
PROVIDERS: ADMIT Hospitalist; ATTEND Hospitalist
DX: A41.9 Sepsis, unspecified organism (principal); J18.9 Pneumonia, unspecified organism; J96.01 Acute respiratory failure with hypoxia; G47.33 Obstructive sleep apnea (adult) (pediatric); F41.9 Anxiety disorder, unspecified; I10 Essential (primary) hypertension; K21.9 Gastro-esophageal reflux disease without esophagitis; Z88.0 Allergy status to penicillin; Z86.010 Personal history of colon polyps
CPT/HCPCS: 71045; 71275; 76937; 80048; 80053; 81001; 83605; 83735; 83880; 84484; 85025; 85610; 85730; 87040; 87641; 87804; 93005; 94150; 94640; 94664; 96361; 96365; J0696; J1956; J3370; J7030; J7040; J7608; Q9967